=== PATIENT | male | born 1975 | race Caucasian/White ===

== ENCOUNTER 2016-09-24 19:00 | Inpatient (IN) | payer OTHER ==
[~2016-09-24] VITALS: Ht 188 cm; Wt 96.2 kg
--- NOTE | ~2016-09-24 | HP ---
Unit #: [id number] #: [id number] Patient: NOE LITTLE [id number] [place] [address] [id number] MR#: [id number] NAME: NOE LITTLE. ROOM: P182 Age: 40 Sex: M Admission Date: 09/24/2016 : 1975 Attending Physician: Nolan Ziegler M.D. Admitting Physician: Nolan Ziegler M.D. Primary Care Physician: Comfort Johnston M.D. HISTORY AND PHYSICAL REASON FOR ADMISSION Acute psychiatric inpatient admission. HISTORY OF PRESENT ILLNESS The patient is a 40-year-old, very pleasant, male, presented secondary to substance abuse and/or obtaining help for the same. PAST MEDICAL HISTORY Prior history of substance abuse, current substance abuse, depression. CURRENT HOME MEDICATIONS Celexa and Adderall for which the patient states he is currently not taking. FAMILY HISTORY Brother with substance abuse and drug abuse, bipolar. SOCIAL HISTORY Substance abuse. Tobacco, alcohol, marijuana, crack cocaine, amphetamines. REVIEW OF SYSTEMS Please see HPI. Twelve point otherwise negative except for those positive noted in the HPI and noted pertinent for depression and anxiety, tearfulness. PHYSICAL EXAMINATION GENERAL: Awake, alert, oriented to person, place, and time. Well built, well nourished. Does not appear to be in any acute distress. VITAL SIGNS: Temperature 98.6, blood pressure 131/85, respiratory rate 17, and pulse 120. HEAD: Atraumatic. Normocephalic. EYES: Bilateral extraocular muscles are normal. Pupils equal, reactive to light and accommodation. Sclerae are normal. No jaundice. NECK: Neck is supple. No neck rigidity. No thyromegaly. No carotid bruit. No JVD. Oral mucosa is moist. CHEST: Bilateral vesicular breathing. Clear to auscultation. No basilar rales. CARDIOVASCULAR: S1 and S2 normal. No murmur, no gallop, no rub. ABDOMEN: Soft, nontender. No organomegaly. Bowel sounds are normal. No hernia, no masses, no rebound, no guarding. EXTREMITIES: No pitting edema. No calf tenderness. Extremity pulses, including dorsalis pedis, have good volume. BACK: Normal spine curvature. No spine tenderness. No costovertebral Unit #: [id number] #: [id number] Patient: LITTLEMARY LOUNOE S angle tenderness. HEARING SCREEN COORDINATOR: Cranial nerves normal bilaterally. Motor function bilaterally symmetric and normal. Sensory system normal. SKIN: Warm and dry. INITIAL IMPRESSION 1. Acute psychiatric inpatient admission. 2. Substance abuse. 3. Major depressive disorder. 4. Noncompliance with medications. PLAN As per psychiatrist, medical condition stable. There are no medical contraindications to the patient participating in activities while here at [facility]. Dictated by... Tanya Acuña M.D. TOREY/babs TD: 09/25/2016 18:07 JOB #: [id number] HISTORY AND PHYSICAL Page 1 of 1 X Tanya Acuña MD X HISTORY AND PHYSICAL
--- NOTE | ~2016-09-24 | PN ---
Unit #: [id number] #: [id number] Patient: NOE LITTLE [id number] [facility] [address] [place] [address] [id number] MR#: [id number] NAME: NOE LITTLE ROOM: P182 Age: 40 Sex: M Admission Date: 09/24/2016 : 1975 Attending Physician: Nolan Ziegler M.D. Admitting Physician: Nolan Ziegler M.D. Primary Care Physician: Vaibhav Cronin PROGRESS NOTES DATE 09/26/2016 DISCUSSION The patient is abed today. He is complaining of some issues with an anal fistula and wishes to restart previously prescribed antibiotics and receive a stool softener. These will be ordered and we expect a.m. discharge. The patient states that he plans to return to his home town of [facility] upon discharge. Dictated by... Nolan Ziegler M.D. CB/serge TD: 09/26/2016 22:28 JOB #: [id number] VETO PROGRESS NOTES Page 1 of 1 X Nolan Ziegler MD X PROGRESS NOTE
--- NOTE | ~2016-09-24 | DS ---
Unit #: [id number] #: [id number] Patient: NOE LITTLE [id number] [place] [address] [id number] MR#: [id number] NAME: NOE LITTLE. ROOM: P182 Age: 40 Sex: M Admission Date: 09/24/2016 : 1975 Discharge Date: 09/27/2016 Attending Physician: Nolan Ziegler M.D. Primary Care Physician: Comfort Johnston M.D. DISCHARGE SUMMARY REASON FOR ADMISSION The patient is a 40-year-old white male admitted with a history of methamphetamine abuse, dysphoric mood and suicidal ideation. HOSPITAL COURSE The patient was admitted to the [address] [place] [address] unit and placed on suicide precautions. He was restarted on previously prescribed Celexa 20 mg daily for depression and was continued on Bactrim DS and Flagyl, which he is taking for an anal fissure. The patient's stay in the hospital was a fairly uneventful one. He showed significant improvement in mood as his brief stay progressed. By 09/27/2016 requested discharge was ordered. FINAL DIAGNOSES 1. Methamphetamine use disorder. 2. Dysthymic disorder. 3. Anal fissure. FOLLOWUP CARE Followup will take place through the auspices of [facility] and the chemical dependence intensive outpatient program provided at this facility. DISCHARGE MEDICATIONS 1. Celexa 20 mg daily for depression. 2. Bactrim DS 1 tablet b.i.d. for anal fissure. 3. Flagyl 500 mg t.i.d. for anal fissure. 4. Colace 100 mg at bedtime for constipation. 5. Dulcolax 10 mg daily for stool softening. PROGNOSIS Considered fair. DIET AND ACTIVITY No dietary or physical restrictions placed on the patient at the time of discharge. Dictated by... Vaibhav Vegas TD: 09/29/2016 13:31 Unit #: [id number] #: [id number] Patient: NOE LITTLE JOB #: [id number] DISCHARGE SUMMARY Page 1 of 1 X Nolan Ziegler MD DISCHARGE SUMMARY
--- NOTE | ~2016-09-24 | PA ---
Unit #: [id number] #: [id number] Patient: NOE LITTLE [id number] [place] [address] [id number] MR#: [id number] NAME: NOE LITTLE. ROOM: P182 Age: 40 Sex: M Admission Date: 09/24/2016 : 1975 Date of Assessment: 09/25/2016 Attending Physician: Nolan Ziegler M.D. Admitting Physician: Noaln Ziegler M.D. Primary Care Physician: Comfort Johnston M.D. PSYCHIATRIC ASSESSMENT IDENTIFYING INFORMATION The patient is a 40-year-old white male admitted for methamphetamine abuse. CHIEF COMPLAINT "I need help." INFORMANT(S) Patient, reliability is good. HISTORY OF PRESENT ILLNESS The patient is a 40-year-old white male with a history of methamphetamine abuse. He reports history of methamphetamine addiction and reports that the past 2 months he has been using by means of intravenous administration. He denies use of other psychoactive substances. The patient is currently homeless and unemployed. He does report positive suicidal ideation with plan to overdose. The patient has been prescribed citalopram in the past but has been noncompliant with this medication for sometime. He had also been prescribed Adderall per his report. The patient today exhibits dysphoric mood but is denying suicidal ideation. He denies any psychotic symptoms. PAST PSYCHIATRIC HISTORY The patient denies prior chemical dependence treatment. He has been on citalopram for depression in the past. PAST MEDICAL HISTORY Noncontributory. MEDICATIONS Celexa, Adderall. ALLERGIES None. FAMILY HISTORY Noncontributory. SOCIAL HISTORY The patient is presently homeless and unemployed. 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 SUBSTANCE ABUSE HISTORY As prescribed previously, and he is a smoker. Unit #: [id number] #: [id number] Patient: NOE LITTLE MENTAL STATUS EXAMINATION Examination at this time reveals the patient to be a well-developed well-nourished somewhat disheveled white male appearing stated age. She is in no apparent physical distress at the time of examination. He is awake, alert, and oriented in all spheres. His mood is mildly dysphoric, his affect constricted. Speech is generally well-coherent. There are no gross deficits in memory or cognition noted. Intelligence is judged to be in the average range based on fund of knowledge. The patient is cooperative throughout the interview. He is currently denying suicidal or homicidal ideation or psychotic features. Judgment and insight appear to be intact. ASSETS AND LIABILITIES The patient's assets: Motivation for change. Liabilities: Lack of resources, homelessness. DIAGNOSTIC IMPRESSION 1. Methamphetamine use disorder. 2. Mood disorder unspecified. TREATMENT PLAN The patient remains hospitalized for safety and stabilization. We will restart citalopram and Adderall. We will not be restarted for obvious reasons. I will ask her social work msw to see the patient regarding post-discharge treatment options. ESTIMATED LENGTH OF STAY 3 to 5 days. Suicide precautions remain in place. Dictated by... Nolan Ziegler M.D. DIONICIO/karuna TD: 09/25/2016 12:19 JOB #: [id number] PSYCHIATRIC ASSESSMENT Page 1 of 1 X Nolan Ziegler MD X PSYCHIATRIC ASSESSMENT
[2016-09-25 11:17] LABS: BASOPHIL# 0.1 X10e3 (0-0.3); BASOPHIL% 0.8 % (0-2.5); EOSINOPHIL# 0.2 X10e3 (0-0.7); EOSINOPHIL% 2.3 % (0.0-7.0); HEMATOCRIT 41.2 % (38.0-50.0); HEMOGLOBIN 14.1 gm/dL (13.0-16.0); LYMPHOCYTE# 2.3 X10e3 (1.0-3.5); LYMPHOCYTE% 33.2 % (17.0-45.0); MEAN CELL VOLUME 86.5 FL (83-96); MEAN CORPUSCULAR HEMOGLOBIN 29.6 PG (28-34); MEAN CORPUSCULAR HGB CONC 34.2 g/dL (30-36); MEAN PLATELET VOLUME 8.6 FL (6.5-11.5); MONOCYTE# 0.8 X10e3 (0-1.0); MONOCYTE% 11.2 % (3.0-12.0); NEUTROPHIL# 3.6 X10e3 (1.5-7.1); NEUTROPHIL% 52.5 % (40-75); PLATELET COUNT 238 X10e3 (140-420); RED BLOOD COUNT 4.76 X10e (3.90-5.60); RED CELL DISTRIBUTION WIDTH 13.4 % (11.0-15.5); WHITE BLOOD COUNT 6.8 X10e3 (4.0-10.5)
[2016-09-25 11:30] LABS: DIFF IND NO
[2016-09-25 11:46] LABS: ALBUMIN SERUM 3.4 g/dL (3.5-5.0); BILIRUBIN,TOTAL 0.5 mg/dL (0.2-2.0); BUN/CREATININE RATIO 7.77; CALCIUM SERUM 8.5 mg/dL (8.4-10.2); CREATININE SERUM 0.9 mg/dL (0.6-1.4); GLOM FILT RATE Estimated 107.2 mL/min (>60); POTASSIUM 4.1 mmol/L (3.5-5.1); PROTEIN TOTAL SERUM 6.1 g/dL (6.0-8.3)
[2016-09-27 09:43] LABS: URINE APPEARANCE CLEAR; URINE BILIRUBIN NEG (NEG); URINE BLOOD NEG (NEG); URINE COLOR YELLOW; URINE GLUCOSE NEG (NEG); URINE KETONE NEG (NEG); URINE LEUKOCYTE ESTERASE NEG (NEG); URINE NITRATE NEG (NEG); URINE PH 8.5 (5-8); URINE PROTEIN NEG (NEG); URINE SPECIFIC GRAVITY 1.012 (1.003-1.035); URINE UROBILINOGEN 0.2 MG/DL (NEG)
[2016-09-27 10:07] LABS: AMPHETAMINE POS (NEG); BARBITURATES NEG (NEG); BENZODIAZEPINES NEG (NEG); COCAINE NEG (NEG); MARIJUANA POS (NEG); OPIATES NEG (NEG); TRICYCLIC ANTIDEPRESSANTS NEG (NEG); U METHADONE NEG (NEG)
== END 2016-09-27 16:00 | disposition home or self-care (01) | DRG 897 ==
LOC: P1E 21:32
PROVIDERS: Specialist
DX: F15.10 Other stimulant abuse, uncomplicated (principal); F39 Unspecified mood [affective] disorder; Z91.14 Patient's other noncompliance with medication regimen
CPT/HCPCS: 80053; 80307; 81003; 85025